=== PATIENT | female | born 1945 | race Caucasian/White ===

== ENCOUNTER 2019-11-29 19:12 | Emergency (ER) | payer BC, MEDICARE ==
--- NOTE | 2019-11-29 21:00 | CT ---
CT OF THE BRAIN WITHOUT CONTRAST: 11/29/[address] was performed following trauma. The ventricles are normal in size for age and atroph y. There is some patchy deep white matter lucency consistent with chronic microvascular ischemia. The re was no sign of intracranial bleeding or extra-axial hematoma. No mass, stroke or edema was seen. T he skull appears intact and the visible paranasal sinuses and mastoid air cells are clear. IMPRESSION: No acute intracranial findings. Preliminary report called to Dr. La at 2045 on 11/29/19. POS: HOME
== END 2019-11-29 20:53 | disposition home or self-care (01) ==
LOC: BURERS 19:12
DX: S01.81XA Laceration without foreign body of other part of head, initial encounter (principal); I10 Essential (primary) hypertension; W19.XXXA Unspecified fall, initial encounter
CPT/HCPCS: 12011; 70450